=== PATIENT | male | born 1990 | race African-American/Black ===

== ENCOUNTER 2021-03-29 01:28 | Emergency (ER) | payer SELFPAY ==
[~2021-03-29] VITALS: Ht 188 cm; Wt 172.0 kg
[2021-03-29 02:21] VITALS: BP 201/106
--- NOTE | 2021-03-29 03:03 | ED.ADGEN ---
Past Medical History Past Surgical History: No Surgical History General Adult EDM: Chief Complaint: RECTAL BLEED HPI: HPI: Patient is a 30 year old male coming in for bright red blood while wiping today, patient also noticed some blood on his towel after taking a shower. Says he has little bit of rectal discomfort but is not very painful. Has had episodes in the past which she associates with him walking around while working at the [employer]. Denies any other complaints. Says he has not had to have any constipation or straining with bowel movements, denies anything inserted in his rectum. Review of Systems: Review of Systems: All other systems within normal limits except for as noted in the HPI Current Medications: Current Medications Medications (Trade) Dose Ordered Sig/Ha Start Time Stop Time Status Last Admin Dose Admin Lidocaine HCl (Glydo (Lidocaine) Jelly) 1 jayesh 1X ONCE 03/29/21 03:30 03/29/21 03:31 Allergies: Allergies: Allergies Coded Allergies Type Severity Reaction Last Updated Verified amoxicillin Allergy Intermediate 03/29/21 Yes Physical Exam: PE: Constitutional: Well developed, well nourished, no acute distress, non-toxic appearance. [] HENT: Normocephalic, atraumatic, bilateral external ears normal, nose normal. [] Eyes: PERRLA, conjunctiva normal, no discharge. [] Neck: No rigidity, supple, no stridor. [] Cardiovascular: Regular rate and rhythm, brisk cap refill [] Lungs & Thorax: Non labored symmetric respirations, no tachypnea or respiratory distress [] Abdomen: Soft, nondistended. Rectal exam:. No hemorrhoids on external or internal exam, no active bleeding, small anterior midline fissure Skin: Warm, dry, no erythema, no rash. [] Back: Unremarkable Extremities: No deformities, range of motion grossly intact, no lower extremity edema [] Neurologic: Alert and oriented X 3, no focal deficits noted. [] Psychologic: Affect normal, judgement normal, mood normal. [] Current Patient Data: Labs: Laboratory Tests Test 03/29/21 03:00 Stool Occult Blood Positive (NEG) Vital Signs: Vital Signs Date Time Temp Pulse Resp B/P (MAP) Pulse Ox O2 Delivery O2 Flow Rate FiO2 03/29/21 02:21 98.5 102 18 201/106 (137) 97 98.5 EKG: EKG: [] Heart Score: C/O Chest Pain: No Risk Factors: Risk Factors: DM, Current or recent (<one month) smoker, HTN, HLP, family history of CAD, obesity. Risk Scores: Score 0 - 3: 2.5% MACE over next 6 weeks - Discharge Home Score 4 - 6: 20.3% MACE over next 6 weeks - Admit for Clinical Observation Score 7 - 10: 72.7% MACE over next 6 weeks - Early Invasive Strategies Radiology/Procedures: Radiology/Procedures: [] Course & Med Decision Making: Course & Med Decision Making Pertinent Labs and Imaging studies reviewed. (See chart for details) [] Dragon Disclaimer: Dragon Disclaimer: This electronic medical record was generated, in whole or in part, using a voice recognition dictation system. Departure Departure Impression: Primary Impression: Anal fissure Disposition: HOME / SELF CARE / HOMELESS Condition: STABLE Patient Instructions: Anal Fissure, Adult RABIA MORELOS MD Mar 29, 2021 03:03
[2021-03-29 03:09] LABS: FECAL OB PT POSITIVE (NEG)
[2021-03-29] MEDS ORDERED: LIDOCAINE 2% JELLY 6ML IN APPLICATOR. MM ONE (03:30)
== END 2021-03-29 03:45 | disposition home or self-care (01) ==
LOC: ER 01:28
DX: K60.2 Anal fissure, unspecified (principal); Z88.1 Allergy status to other antibiotic agents
CPT/HCPCS: 82274; 99283